=== PATIENT | female | born 1950 | race Caucasian/White ===

== ENCOUNTER 2019-05-02 08:01 | Outpatient (CLI) | payer MEDICARE, SELFPAY ==
--- NOTE | ~2019-05-02 | CT_ITS ---
EXAMINATION: CT chest wo con DATE: 05/02/2019 08:39 INDICATION: Solitary pulmonary nodule TECHNIQUE: Computed tomography (CT) of the chest was performed without intravenous contrast. The dose -length product (DLP) was 237.26 mGy-cm. Automated exposure control and iterative reconstruction tech [employer] were employed. COMPARISON: 04/12/2017 FINDINGS: There is a stable 6 mm nodule of the left lower lobe. No new or suspicious pulmonary nodule is identified. There is a small area of mild bronchiectasis and airspace opacity in the medial right lower lobe. No pleural effusion or pneumothorax is identified. No pathologically enlarged thoracic l ymph nodes are identified. The heart size is normal. Calcified coronary artery atherosclerosis is not ed. There is moderate thoracic spondylosis. Cholelithiasis is noted. IMPRESSION: 1. Stable left lower lobe nodule, consistent with old granulomatous disease. 2. Small area of mild bronchiectasis and airspace opacity in the medial right lower lobe, likely infe ctious or inflammatory. Reviewed, dictated and finalized at location A. RICAL CONTROL NESTING OPERATOR IMPRESSION: 1. Stable left lower lobe nodule, consistent with old granulomatous disease. 2. Small area of mild bronchiectasis and airspace opacity in the medial right l ower lobe, likely infectious or inflammatory.
== END 2019-05-02 08:02 | disposition home or self-care (01) ==
PROVIDERS: PCP Internal Medicine; Visit Provider Nurse Practitioner
DX: R91.1 Solitary pulmonary nodule (principal); J47.9 Bronchiectasis, uncomplicated
CPT/HCPCS: 71250

== ENCOUNTER 2019-05-20 08:41 | Outpatient (CLI) | payer MEDICARE, SELFPAY ==
--- NOTE | 2019-05-20 | EST_ITS ---
Patient Info Name: Virginia Smith Age: 69 years : 1950 Gender: Female Ht: 66 in Wt: 271 lbs BSA: 2.46 m2 Technical Quality: Good Exam Date: 05/20/2019 10:08 AM Exam Location: [facility] Pulmonary Patient Status: Outpatient Admit Date: 05/20/2019 Staff Ordering Physician: Dinah Read MANAGER SYSTEM-[place] Diabetic Educator: Gray Ruiz RDCS, RT Attending Provider: AMADOU BOBBY Referring Physician: Roro BERNARDO; Exercise Technologist: Gray Ruiz RDCS, RT Exercise Physician: Amadou Bobby DO Exam Type: CA stress echo Study Info Indications R06.00 - Dyspnea, unspecified Treadmill exercise stress echocardiogram is performed. Summary 1. 1. Inconclusive Wilner exercise stress test for ischemic ST changes by ECG criteria, achieving only 78% MPHR for age group which reduces sensitivity of the test. 2. 2. Reduced functional capacity, achieving 7 METs of workload. 3. 3. Hypertensive response to exercise. 4. 4. Appropriate HR recovery at 1 minute post exercise. 5. 5. Negative stress echocardiogram for ischemia by wall motion analysis at the level of HR achieved. 6. 6. Patient informed of the above results. Stress Echo Findings Left Ventricle Appropriate increase in LV endocardial thickening with systole. Appropriate augmentation of contractility with systole. No wall motion abnormality. Left Ventricle Normal LV systolic function, no wall motion abnormality. Protocol: Wilner Stress ECG Details Stage: REST Duration (min): 1 min : 45 sec Speed (mph): 0.0 Grade (%): 0 HR (bpm): 62 SBP (mmHg): 122 DBP (mmHg): 61 METS: --- Stage: REST Duration (min): 11 min : 44 sec Speed (mph): 0.0 Grade (%): 0 HR (bpm): 69 SBP (mmHg): 122 DBP (mmHg): 61 METS: --- Stage: STAGE 1 Duration (min): 1 min : 0 sec Speed (mph): 1.7 Grade (%): 10 HR (bpm): 84 SBP (mmHg): 122 DBP (mmHg): 61 METS: --- Stage: STAGE 1 Duration (min): 2 min : 0 sec Speed (mph): 1.7 Grade (%): 10 HR (bpm): 94 SBP (mmHg): 122 DBP (mmHg): 61 METS: --- Stage: STAGE 1 Duration (min): 3 min : 0 sec Speed (mph): 1.7 Grade (%): 10 HR (bpm): 99 SBP (mmHg): 143 DBP (mmHg): 53 METS: --- Stage: STAGE 2 Duration (min): 1 min : 0 sec Speed (mph): 2.5 Grade (%): 12 HR (bpm): 99 SBP (mmHg): 143 DBP (mmHg): 53 METS: --- Stage: STAGE 2 Duration (min): 2 min : 0 sec Speed (mph): 2.5 Grade (%): 12 HR (bpm): 108 SBP (mmHg): 206 DBP (mmHg): 64 METS: --- Stage: STAGE 2 Duration (min): 2 min : 47 sec Speed (mph): 0.0 Grade (%): 0 HR (bpm): 89 SBP (mmHg): 206 DBP (mmHg): 64 METS: --- Stage: RECOVERY Duration (min): 0 min : 12 sec Speed (mph): 0.0 Grade (%): 0 HR (bpm): 89 SBP (mmHg): 206 DBP (mmHg): 64 METS: --- Stage: RECOVERY Duration (min): 1 min : 12 sec Speed (mph): 0.0 Grade (%): 0 HR (bpm): 88 SBP (mmHg): 206 DBP (mmHg): 64 METS: ---
--- NOTE | ~2019-05-20 | DEXA_ITS ---
Bone Density Report Name: Virginia Smith Age: 69 Sex: Female Ethnicity: White Date of : 1950 Indication: postmenopausal; height loss; Referring Provider: Dinah Read Study: Bone densitometry was performed. Exam Date: May 20, 2019 Accession number: [id number] Bone Density: Region BMD T-score Z-score Classification AP Spine (L1-L4) 1.120 0.7 2.8 Normal Femoral Neck (Left) 0.934 0.8 2.6 Normal Total Hip (Left) 1.196 2.1 3.6 Normal Total Hip Bilateral Avg 1.151 1.7 3.3 Normal Femoral Neck (Right) 0.947 0.9 2.7 Normal Total Hip (Right) 1.104 1.3 2.9 Normal World Health Organization criteria for BMD impression classify patients as: Normal (T-score at or above -1.0), Osteopenia (T-score between -1.0 and -2.5), or Osteoporosis (T-score at or below -2.5). 10-year Fracture Risk: FRAX not reported because: All T-scores for Spine Total, Hip Total, Femoral Neck at or above -1.0 Previous Exams: Region Exam Age BMD T-score BMD Change BMD Change Date g/cm2 vs Baseline vs Previous AP Spine(L1-L4) 05/20/2019 69 1.120 0.7 -0.143(-11.3%) -0.143(-11.3%) 05/07/2003 53 1.264 2.0 Total Hip(Left) 05/20/2019 69 1.196 2.1 0.061(5.4%)# 0.061(5.4%)# 05/07/2003 53 1.135 1.6 Total Hip(Right) 05/20/2019 69 1.104 1.3 -0.058(-5.0%)# -0.058(-5.0%)# 05/07/2003 53 1.162 1.8 *Denotes significance at 95% confidence level, LSC for AP Spine = 0.022 g/cm2, LSC for Total Hip = 0.027 g/cm2 Clinical Information Provided by Patient: Patient maximum height was 67 Menopause Age: 58 No regular weight bearing exercise Drinks caffeinated beverages Onset of menses at age 13 Number of children 4 Impression: The patient has normal bone mass. No significant bone loss was observed. Discussion: LOW RISK OF FRACTURE; BONE DENSITY IS WELL ABOVE THE MINIMUM DESIRABLE LEVEL AND ABOVE AVERAGE FOR AGE AND SEX AT ALL SKELETAL SITES TESTED. This person's bone density is above expected limits for age and sex. This is rarely clinically significant, but should be pursued if there are significant musculoskeletal complaints. The patient should follow a healthful lifestyle (good nutrition with adequate calcium and vitamin D, and appropriate weight-bearing exercise). Follow-Up: Consider repeating this study in 5 years or sooner if there is some new clinical indication. Reported by: SHANTI 05/20/2019 9:08:00 AM.
== END 2019-05-20 08:42 | disposition home or self-care (01) ==
PROVIDERS: PCP Internal Medicine; Visit Provider Nurse Practitioner
DX: Z78.0 Asymptomatic menopausal state (principal); R06.09 Other forms of dyspnea
CPT/HCPCS: 77080; 93351

== ENCOUNTER 2020-05-27 06:36 | Outpatient (CLI) | payer MEDICARE, SELFPAY ==
--- NOTE | 2020-05-27 07:00 | ECHO_ITS ---
Patient Info Name: Virginia Smith Age: 70 years : 1950 Gender: Female Ht: 66 in Wt: 270 lbs BSA: 2.45 m2 HR: 41 bpm BP: 124 / 72 mmHg Heart Rhythm: Bradycardia Exam Date: 05/27/2020 7:25 AM Exam Location: [facility] Pulmonary Patient Status: Outpatient Admit Date: 05/27/2020 Staff Ordering Physician: Amadou Wylie DO Rotary Drier: Shellie Chamorro RDCS Attending Provider: Amadou Wylie DO Exam Type: CA echo doppler color flow Study Info Indications R06.00 - Dyspnea, unspecified Complete two-dimensional, color flow and Doppler transthoracic echocardiogram is performed. Summary 1. Complete two-dimensional, color flow and Doppler transthoracic echocardiogram is performed. 2. Left ventricular chamber dimension is normal. 3. Left ventricular systolic function is normal, estimated at 60-65%. 4. The left ventricular diastolic function is abnormal. 5. E/e' 19 is elevated. 6. Left atrial chamber dimension is moderately enlarged. 7. There is mild aortic valve sclerosis. 8. The mitral valve has moderately calcified annulus. 9. There is mild mitral valve regurgitation. 10. There is mild tricuspid valve regurgitation. 11. Mild pulmonary hypertension, estimated pulmonary arterial systolic pressure is 44 mmHg. 12. There is trace pulmonic regurgitation. Left Ventricle E/e' 19 is elevated. Left ventricular chamber dimension is normal. Left ventricular systolic function is normal, estimated at 60-65%. The left ventricular diastolic function is abnormal. Right Ventricle Right ventricular chamber dimension is normal. Right ventricular systolic function is normal. Left Atria Left atrial chamber dimension is moderately enlarged. Right Atria Right atrial chamber dimension is normal. Aortic Valve The aortic valve is trileaflet. There is mild aortic valve sclerosis. There is no aortic valve stenosis. There is no aortic valve regurgitation. Pulmonic Valve There is trace pulmonic regurgitation. Mitral Valve The mitral valve has moderately calcified annulus. There is no mitral valve stenosis. There is mild mitral valve regurgitation. Tricuspid Valve There is mild tricuspid valve regurgitation. Mild pulmonary hypertension, estimated pulmonary arterial systolic pressure is 44 mmHg. Pericardium/Pleural There is no pericardial effusion. Inferior Vena Cava Normal inferior vena cava with >50% collapse upon inspiration consistent with normal right atrial pressure, 5 mmHg. Aorta The aortic root size at the sinus of Valsalva is normal. Left Ventricular Outflow Tract Name Value Normal LVOT 2D LVOT Diameter 2.0 cm LVOT Doppler LVOT Peak Velocity 117 cm/s LVOT Peak Gradient 4 mmHg LVOT Mean Gradient 2 mmHg LVOT VTI 27 cm LVOT VTI/AV VTI Ratio 0.6 LVOT Stroke Volume 88 ml LVOT CO 13.8 l/min LVOT CI 5.6 l/min/m2 Pulmonic Valve
== END 2020-05-27 06:37 | disposition home or self-care (01) ==
PROVIDERS: PCP Internal Medicine; Visit Provider Internal Medicine Cardiovascular Disease
DX: R06.00 Dyspnea, unspecified (principal); I27.20 Pulmonary hypertension, unspecified; I08.3 Combined rheumatic disorders of mitral, aortic and tricuspid valves
CPT/HCPCS: 93306

== ENCOUNTER 2020-07-15 08:25 | Outpatient (CLI) | payer MEDICARE, SELFPAY ==
--- NOTE | ~2020-07-15 | MM_ITS ---
EXAMINATION: MM screening julian BI w araceli HISTORY: Screening mammogram TECHNIQUE: Craniocaudal and mediolateral oblique 3-D tomosynthesis images were obtained and synthetic 2-D images were generated. CAD analysis was submitted and interpreted. COMPARISON: 10/31/2018, 10/11/2017, 05/25/2016 bilateral digital screening mammogram examinations BREAST PARENCHYMAL COMPOSITION: The breasts are almost entirely fatty. FINDINGS: There is no evidence of suspicious mass, calcification, or architectural distortion to sugg est malignancy in either breast. There has been no suspicious interval change. IMPRESSION: 1. No mammographic evidence of malignancy. 2. Recommend routine screening mammography in one year. BI-RADS Category 1: Negative Reviewed, dictated and finalized at location A.
== END 2020-07-15 08:26 | disposition home or self-care (01) ==
LOC: ANHIMG 08:27
PROVIDERS: PCP Internal Medicine; Visit Provider Obstetrics & Gynecology
DX: Z12.31 Encounter for screening mammogram for malignant neoplasm of breast (principal)
CPT/HCPCS: 77063; 77067

== ENCOUNTER 2021-05-01 07:41 | Outpatient (CLI) | payer MEDICARE, SELFPAY ==
--- NOTE | 2021-05-02 16:09 | WPDHOMESLEEP ---
Sleep Study - Home Unattended Date of Study: 05/01/21 <Nya Young DO - Last Filed: 05/02/21 16:32> Ordering Provider: Amadou Wylie DO <Nya Young DO - Last Filed: 05/02/21 16:32> Interpreting Provider: Nya Young DO <Nya Young DO - Last Filed: 05/02/21 16:32> Home Sleep Study Type: Apnea Link Air <yNa Young DO - Last Filed: 05/02/21 16:32> Height: 1.68 m <Nya Young DO - Last Filed: 05/02/21 16:32> Weight: 122.47 kg <Nya Young DO - Last Filed: 05/02/21 16:32> Body Mass Index: 43.5 <Nya Yougn DO - Last Filed: 05/02/21 16:32> Neck Circumference (inches): 18 <Nya Young DO - Last Filed: 05/02/21 16:32> [place]: 3 <Nya Young DO - Last Filed: 05/02/21 16:32> Reason for Sleep Study Unrefreshing sleep and daytime hypersomnia. <Nya Young DO - Last Filed: 05/02/21 16:32> Sleep History The patient is a 71 y/o female with COPD, hypertension, hyperlipidemia, hypothyroidism, CAD and bradycardia that had a HSAT ordered by her lobby concierge for evaluation of ALIYAH.The patient rarely awakens from sleep short of breath. She occasionally awakens at night with heartburn, belching or cough. She rarely snores loud enough that others complain. She occasionally has trouble sleeping when she has a cold. She denies waking up gasping for air throughout the night. She denies having breathing problems at night observed by others. She rarely sweats excessively at night. She rarely notices heart palpitations or irregular heartbeats during the night. She rarely falls asleep during the day and never while driving. She rarely experiences loss of muscle tone when extremely emotional. She denies sleep paralysis. She denies having trouble at school or work due to sleepiness. She occasionally experiences vivid dreamlike scenes upon awakening or falling asleep. She rarely has nightmares. She frequently has thoughts racing through her mind. She rarely feels sad or depressed. She occasionally has anxiety. She rarely notices parts of her body jerk. She denies kicking during the night. She occasionally has crawling and aching feelings in her legs and rarely has leg pain during the night. She occasionally grinds her teeth during sleep but denies awakening with morning jaw pain. She denies being bothered by pain during the day and being awakened by pain during the night. She rarely wakes up feeling stiff in the morning with sore or achy muscles. She rarely wakes up with pain in the neck, spine or other joints. She goes to bed between 11:00 p.m. and 1:00 a.m. on both weekdays and weekends. She can usually fall asleep within 10 minutes. She wakes up once or twice throughout the night to urinate. it can take her up to 2 hours to fall back asleep. She wakes up between 6 and 7:00 a.m. on both weekdays and weekends. She typically gets between 6 and 8 hours of sleep per night. She will stay in bed for 15-30 minutes after waking up in the morning. She currently lives with her and son. She denies consuming any caffeinated beverages within 2 hours of bedtime. She does not engage in physical exercise before bedtime. She will read watch television before falling asleep. She denies taking naps in the afternoon or the evening. She will drink 2-3 cups of a caffeinated beverage in the morning daily. She denies tobacco, alcohol recreational drug use. <Nya Young DO - Last Filed: 05/02/21 16:32> [facility] Past Medical History Medical History: Medical History COPD (chronic obstructive pulmonary disease) Hypercholesteremia Hypertension Hypothyroidism Vaginal delivery x4 <Nya Young DO - Last Filed: 05/02/21 16:32> Family History Family History: Family History (Reviewed 05/02/21 @ 16:22 by Nya Amor
[2021-05-02 16:32] VITALS: BMI 43.5
== END 2021-05-02 13:46 | disposition home or self-care (01) ==
LOC: ANHCSM 07:42
PROVIDERS: PCP Internal Medicine; Visit Provider Internal Medicine Cardiovascular Disease
DX: G47.10 Hypersomnia, unspecified (principal); G47.33 Obstructive sleep apnea (adult) (pediatric); G47.31 Primary central sleep apnea
CPT/HCPCS: 95806

== ENCOUNTER 2021-05-09 07:36 | Outpatient (CLI) | payer MEDICARE, SELFPAY ==
--- NOTE | 2021-05-10 15:23 | WPDSLEEPSTUD ---
Sleep Study Date of Study: 05/09/21 Ordering Provider: Amadou Wylie DO Interpreting Physician: Nicki Alfaro MD Sleep Study Type: CPAP Titration Height: 1.68 m Weight: 122.47 kg Body Mass Index: 43.5 Neck Circumference (inches): 16.5 [place]: 3 Reason for Sleep Study * Home sleep test 05/01/2021 with moderate mixed sleep apnea, apnea hypopnea index 21, central apnea hypopnea index 7.3; she presents for a CPAP titration; AHI was 21 and central AHI was 7.3 with Abisai-Storm respirations noted. Sleep History Virginia Smith is a 71 year-old female who had a home sleep test May 01, 2021 showing moderate mixed sleep apnea, and she returns for a CPAP titration. Her medical history includes COPD, hypertension, hyperlipidemia, hypothyroidism, CAD and bradycardia. The patient rarely awakens from sleep short of breath. She occasionally awakens at night with heartburn, belching or cough. She rarely snores loud enough that others complain. She occasionally has trouble sleeping when she has a cold. She denies waking up gasping for air throughout the night. She denies having breathing problems at night observed by others. She rarely sweats excessively at night. She rarely notices heart palpitations or irregular heartbeats during the night. She rarely falls asleep during the day and never while driving. She rarely experiences loss of muscle tone when extremely emotional. She denies sleep paralysis. She denies having trouble at school or work due to sleepiness. She occasionally experiences vivid dreamlike scenes upon awakening or falling asleep. She rarely has nightmares. She frequently has thoughts racing through her mind. She rarely feels sad or depressed. She occasionally has anxiety. She rarely notices parts of her body jerk. She denies kicking during the night. She occasionally has crawling and aching feelings in her legs and rarely has leg pain during the night. She occasionally grinds her teeth during sleep but denies awakening with morning jaw pain. She denies being bothered by pain during the day and being awakened by pain during the night. She rarely wakes up feeling stiff in the morning with sore or achy muscles. She rarely wakes up with pain in the neck, spine or other joints. Normal bedtime is between 11:00 p.m. and 1:00 a.m., usually falling asleep within 10 minutes. She wakes up once or twice throughout the night to urinate. It may take up to 2 hours to fall asleep once she wakes during the night. She wakes up between 6:00 a.m. and 7:00 a.m.. She typically gets between 6 and 8 hours of sleep per night. She denies taking naps in the afternoon or the evening. Habits: No tobacco. Caffeine: 2-3 cups of a caffeinated beverage in the morning daily. No alcohol or recreational drug use. [facility] Past Medical History Medical History COPD (chronic obstructive pulmonary disease) Hypercholesteremia Hypertension Hypothyroidism Vaginal delivery x4 Family History Family History Father Family history of alcoholism Hypertension Hypercholesteremia Mother Cerebrovascular accident, Onset Age: 74 Family history of Alzheimer's disease Acute myocardial infarction Carcinoma of colon Hypertension Hypercholesteremia Sibling Carcinoma of colon brother Hypercholesteremia brother and sister Ovarian cancer Family history of Alzheimer's disease Family history of coronary artery disease Family history of cardiovascular disease, Onset Age: 66 Family history of lung cancer Family history of malignant neoplasm of breast in first degree relative Breast cancer Acute myocardial infarction brother Hypertension brother and sister Grandparent Hypertension grandfathers and grandmothers Other Family history of elevated blood lipids Family history of primary malignant neoplasm of live
[2021-05-19 18:26] VITALS: BMI 43.5
== END 2021-05-10 06:10 | disposition home or self-care (01) ==
LOC: ANHCSM 07:37
PROVIDERS: PCP Internal Medicine; Visit Provider Internal Medicine Cardiovascular Disease
DX: G47.33 Obstructive sleep apnea (adult) (pediatric) (principal); G47.31 Primary central sleep apnea
CPT/HCPCS: 95811

== ENCOUNTER 2021-10-09 09:24 | Outpatient (CLI) | payer MEDICARE, SELFPAY ==
--- NOTE | ~2021-10-09 | MM_ITS ---
EXAMINATION: MM screening julian BI w araceli HISTORY: Screening mammogram TECHNIQUE: Craniocaudal and mediolateral oblique 3-D tomosynthesis images were obtained and synthetic 2-D images were generated. CAD analysis was submitted and interpreted. COMPARISON: 07/15/2020, 10/31/2018, 10/11/2017 bilateral screening mammogram examinations BREAST PARENCHYMAL COMPOSITION: There are scattered areas of fibroglandular density. FINDINGS: There is no evidence of suspicious mass, calcification, or architectural distortion to sugg est malignancy in either breast. There has been no suspicious interval change. IMPRESSION: 1. No mammographic evidence of malignancy. 2. Recommend routine screening mammography in one year. BI-RADS Category 1: Negative Reviewed, dictated and finalized at location A.
== END 2021-10-09 09:25 | disposition home or self-care (01) ==
LOC: ANHIMG 09:26
PROVIDERS: PCP Internal Medicine; Visit Provider Nurse Practitioner
DX: Z12.31 Encounter for screening mammogram for malignant neoplasm of breast (principal)
CPT/HCPCS: 77063; 77067

== ENCOUNTER 2023-02-21 07:21 | Outpatient (CLI) | payer MEDICARE, SELFPAY ==
--- NOTE | ~2023-02-21 | MM_ITS ---
EXAMINATION: MM screening julian BI w araceli HISTORY: Screening mammogram, family history of breast cancer in her sister. TECHNIQUE: Craniocaudal and mediolateral oblique 3-D tomosynthesis images were obtained and synthetic 2-D images were generated. CAD analysis was submitted and interpreted. COMPARISON: 10/06/2021, 07/15/2020, 10/31/2018, 10/11/2017 BREAST PARENCHYMAL COMPOSITION: There are scattered areas of fibroglandular density. FINDINGS: No suspicious mass, calcification, or architectural distortion are identified in either [place] ast to suggest malignancy. There has been no suspicious interval change. IMPRESSION: 1. No mammographic evidence of malignancy. 2. Recommend routine screening mammography in one year. BI-RADS Category 1: Negative Reviewed, dictated and finalized at location A. ERY KILN BUILDER
== END 2023-02-21 07:22 | disposition home or self-care (01) ==
LOC: ANHIMG 07:24
PROVIDERS: PCP Family Medicine; Visit Provider Family Medicine
DX: Z12.31 Encounter for screening mammogram for malignant neoplasm of breast (principal)
CPT/HCPCS: 77063; 77067

== ENCOUNTER 2023-04-03 08:43 | Outpatient (CLI) | payer MEDICARE, SELFPAY ==
--- NOTE | ~2023-04-03 | DEXA_ITS ---
Bone Density Report Name: AYESHA REED Age: 73 Sex: Female Ethnicity: White Date of : 1950 Indication: postmenopausal; screening for osteoporosis; height loss; Referring Provider: GILLIAN SANTILLAN Study: Bone densitometry was performed. Exam Date: April 03, 2023 Accession number: [id number] Bone Density: Region BMD T-score Z-score Classification AP Spine(L1, L2, L3) 1.179 1.5 3.8 Normal Femoral Neck (Left) 0.888 0.4 2.4 Normal Total Hip (Left) 1.139 1.6 3.4 Normal Femoral Neck (Right) 0.886 0.3 2.4 Normal Total Hip (Right) 1.085 1.2 3.0 Normal Total Hip Mean 1.112 1.4 3.2 Normal World Health Organization criteria for BMD impression classify patients as: Normal (T-score at or above -1.0), Osteopenia (T-score between -1.0 and -2.5), or Osteoporosis (T-score at or below -2.5). 10-year Fracture Risk: FRAX not reported because: All T-scores for Spine Total, Hip Total, Femoral Neck at or above -1.0 Previous Exams: Region Exam Age BMD T-score BMD Change BMD Change Date g/cm2 vs Baseline vs Previous AP Spine (L1-L3) 04/03/2023 73 1.179 1.5 0.079 (7.2%)* 0.079 (7.2%)* 05/20/2019 69 1.100 0.7 Total Hip(Left) 04/03/2023 73 1.139 1.6 -0.057 (-4.8%) -0.057 (-4.8%) 05/20/2019 69 1.196 2.1 Total Hip(Right) 04/03/2023 73 1.085 1.2 -0.019 (-1.7%) -0.019 (-1.7%) 05/20/2019 69 1.104 1.3 *Denotes significance at 95% confidence level, LSC for AP Spine = 0.022 g/cm2, LSC for Total Hip = 0.027 g/cm2 Clinical Information Provided by Patient: Has used the following medications: Vitamin D Patient maximum height was 67 Menopause Age: 58 No regular weight bearing exercise Drinks caffeinated beverages Onset of menses at age 13 Number of children 4 Impression: The patient has normal bone mass. The BMD for the Total Hip(Left) decreased, changing by -4.8% since the last DXA exam. Discussion: LOW RISK OF FRACTURE; BONE DENSITY IS WELL ABOVE THE MINIMUM DESIRABLE LEVEL AND ABOVE AVERAGE FOR AGE AND SEX AT ALL SKELETAL SITES TESTED. This person's bone density is above expected limits for age and sex. This is rarely clinically significant, but should be pursued if there are significant musculoskeletal complaints. The patient should follow a healthful lifestyle (good nutrition with adequate calcium and vitamin D, and appropriate weight-bearing exercise). Follow-Up: Consider repeating this study in 3 to 4 years
== END 2023-04-03 08:44 | disposition home or self-care (01) ==
LOC: ANHIMG 08:49
PROVIDERS: PCP Family Medicine; Visit Provider Family Medicine
DX: Z13.820 Encounter for screening for osteoporosis (principal); Z78.0 Asymptomatic menopausal state
CPT/HCPCS: 77080

== ENCOUNTER 2023-10-28 03:03 | Inpatient (IN) | payer MEDICARE, SELFPAY ==
[2023-10-28] VITALS (37 sets, daily range): BP systolic 103–136; BP diastolic 52–82; PULSE 66–92; RESP 14–28; TEMP 36.3–37.2; O2SAT 93–100; BMI 41.6
--- NOTE | ~2023-10-28 | XR_ITS ---
EXAMINATION: XR chest 1V portable DATE: 10/28/2023 03:50 INDICATION: Chest pain. TECHNIQUE: A single frontal view of the chest was obtained. COMPARISON: None. FINDINGS: There is mild atelectasis in the lower lung zones. No pleural effusion or pneumothorax. The heart size is normal. IMPRESSION: 1. Mild atelectasis in the lower lung zones. Reviewed, dictated and finalized at location A.
--- NOTE | ~2023-10-28 | CT_ITS ---
EXAMINATION: CT abdomen pelvis w con DATE: 10/28/2023 12:12 INDICATION: Abdominal lymphadenopathy. TECHNIQUE: Computed tomography (CT) of the abdomen and pelvis was performed with 100 mL Omnipaque 350 intravenous contrast. Automated exposure control and iterative reconstruction technique were employe d. The dose-length product was 1464.48 mGy-cm. COMPARISON: CT abdomen and pelvis 03/30/13 FINDINGS: The visualized portions of the lung bases demonstrate mild atelectasis. No pleural effusion . The heart size is normal. There are coronary artery calcifications. No pericardial effusion. The li vincent is normal. There are gallstones in the gallbladder, which is normal in size. There is mild spleno megaly. The pancreas and right adrenal gland are normal. There are cysts in the kidneys measuring up to 1.9 cm on the right. There are masses in the perinephric spaces including around the hilum of left kidney and involving left adrenal gland. There is aortocaval and left para-aortic lymphadenopathy. F or example, a left para-aortic jillian mass measures 6.2 x 3.6 cm. There is diverticulosis of the colon without evidence of diverticulitis. There are no dilated loops of bowel. The appendix is normal. Aor tic atherosclerosis is noted. There is no free intraperitoneal fluid. There is moderate thoracic spon dylosis and lumbar spondylosis. IMPRESSION: 1. Retroperitoneal lymphadenopathy and perinephric masses, consistent with lymphoma. CT-guided biopsy is recommended. Reviewed, dictated and finalized at location A. IMPRESSION: 1. Retroperitoneal lymphadenopathy and perinephric masses, consistent with lymp aly. CT-guided biopsy is recommended.
--- NOTE | ~2023-10-28 | CT_ITS ---
EXAMINATION: CT biopsy abdomen percutaneous DATE: 10/29/2023 11:54 INDICATION: Right perinephric mass. TECHNIQUE: The procedure including the risks, benefits, and alternatives was discussed with the patie nt. Risks discussed included bleeding and infection. The patient verbalized understanding of the risk s and agreed to proceed. The skin overlying the right kidney was prepped and draped in usual sterile fashion. Anesthetic was administered with 1% lidocaine subcutaneously. A 16 gauge outer needle was advanced under CT guidance into the right perinephric mass. An 18 gauge core biopsy needle was then used to obtain multiple core biopsy specimens. The mA was adjusted according to patient size. Iterati ve reconstruction technique was employed. The dose-length product was 163.73 mGy-cm. The needle was r emoved and the entry site was cleaned and dressed. There were no immediate complications. FINDINGS: CT images demonstrate the outer needle tip adjacent to a 2.8 cm right perinephric mass. IMPRESSION: 1. CT-guided core needle biopsy of a right perinephric mass. Reviewed, dictated and finalized at location A.
--- NOTE | ~2023-10-28 | CT_ITS ---
EXAMINATION: CTA chest PE protocol DATE: 10/28/2023 06:58 INDICATION: Chest pain. TECHNIQUE: Computed tomography angiography (CTA) of the chest was performed with 100 mL Omnipaque-350 intravenous contrast timed to evaluate the pulmonary arteries. Coronal maximum intensity projection 3D-reconstructions were created by the technologist. Automated exposure control and iterative reconst ruction technique were employed. The dose-length product was 865.25 mGy-cm. COMPARISON: Chest CT 05/02/2019 FINDINGS: The lungs demonstrate mild atelectasis. No pleural effusion. Cardiomegaly is noted. There a re coronary artery calcifications. No pericardial effusion. There is a small sliding hiatal hernia. T here are gallstones in the gallbladder, which is normal in size. There is no pulmonary embolus. Parti ally visualized is aortocaval and left para-aortic lymphadenopathy. Perinephric masses are noted. The re are cysts in right kidney measuring up to 19 mm. There is moderate thoracic spondylosis. IMPRESSION: 1. Partially visualized retroperitoneal lymphadenopathy and perinephric masses suspicious for maligna ncy such as lymphoma. CT abdomen and pelvis with contrast is recommended. 2. No pulmonary embolus. Reviewed, dictated and finalized at location A. IMPRESSION: 1. Partially visualized retroperitoneal lymphadenopathy and perinephric masses suspicious for malignancy such as lymphoma. CT abdomen and pelvis with contrast is recommended. 2. No pulmonary embolus.
--- NOTE | 2023-10-28 03:09 | ECG_ITS ---
Test Date: 2023-10-28 03:11:14 Measurements Intervals [place] Rate: 74 P: 0 AL: 0 QRS: -15 QRSD: 96 T: -3 QT: 355 QTc: 395 Interpretive Statements ATRIAL FIBRILLATION WITH CONTROLLED VENTRICULAR RESPONSE LOW QRS VOLTAGE LEFTWARD AXIS ABNORMAL ECG No previous ECG available for comparison Electronically Signed On 10-28-2023 12:30:03 CDT by Dewayne Lazaro M.D.
[2023-10-28 03:20] LABS: Hematocrit 30.9 % (37.0-47.0); Hemoglobin 9.7 g/dL (12.0-15.0); Mean Corpuscular HGB Conc 31.4 g/dl (32-36); Mean Corpuscular Hemoglobin 29.6 pg (26-34); Mean Corpuscular Volume 94.2 fl (80-100); Mean Platelet Volume 10.3 fl (7.4-10.4); Platelet Count Result 180 k/mm3 (150-375); Red Blood Count 3.28 M/mm3 (4.2-5.4); Red Cell Distribution Width 17.3 % (11.5-14.5); White Blood Count 7.4 K/mm3 (4.5-10.0)
[2023-10-28 03:32] LABS: INR 1.3; Prothrombin Time 16.7 Seconds (11.1-14.7)
[2023-10-28 03:33] LABS: Partial Thromboplastin Time 32.1 Seconds (22.3-36.8)
[2023-10-28 03:49] LABS: Alanine Aminotransferase 22 U/L (6-35); Albumin Level 3.3 g/dL (3.5-5.1); Alkaline Phosphatase 70 U/L (38-126); Anion Gap 7 mmol/L (4-12); Aspartate Amino Transferase 103 U/L (14-36); Bilirubin,Total 1.4 mg/dL (0.2-1.3); Blood Urea Nitrogen 17 mg/dL (7-17); Calcium 8.8 mg/dL (8.4-10.2); Carbon Dioxide 28 mmol/L (22-30); Chloride 99 mmol/L (98-107); Estimated CRCL calculation 54 ml/min; Estimated Glomerular Filt Rate 54; Glucose 113 mg/dL (65-110); Lipase 105 U/L (23-300); Potassium 4.4 mmol/L (3.4-5.0); Sodium 134 mmol/L (137-145)
[2023-10-28 03:52] LABS: Atypical Lymphocytes Present; Band Neutrophils Percent 5 % (0-6); Lymphocytes Absolute Manual 1.55 K/mm3 (1.1-4.5); Monocytes Absolute Manual 0.81 K/mm3 (0.1-0.90); Monocytes Percent Manual 11 % (3-9); Neutrophils Absolute Manual 5.03 K/mm3 (1.7-7.2); Neutrophils Percent Manual 63 % (46-73); Platelet Estimate Adequate (Adequate); Schistocytes None Seen; Total Cells Counted 100
[2023-10-28 03:53] LABS: Anisocytosis 1+; Large Platelets Present; Stomatocytes 1+
[2023-10-28 04:07] LABS: Troponin I < 0.012 ng/mL (0.000-0.034)
[2023-10-28 04:39] LABS: Influenza A QL RT-PCR Negative (Negative); Influenza B QL RT-PCR Negative (Negative); RSV RNA, RT-PCR Negative (Negative); SARS-CoV-2 RNA PCR Negative (Negative)
--- NOTE | 2023-10-28 05:34 | ED.CHESTPAIN ---
HPI - Chest Pain General Chief Complaint: Chest Pain <Varsha Cottrell MD - Last Filed: 10/28/23 06:52> Stated Complaint: chest pain <Varsha Cottrell MD - Last Filed: 10/28/23 06:52> Time Seen by Provider: 10/28/23 03:06 <Varsha Cottrell MD - Last Filed: 10/28/23 06:52> History of Present Illness HPI narrative: Patient presenting with chest pain has been intermittent over the last few days, she has also noticed some back pain for the last 2 weeks that is intermittent and worse in certain positions. She also occasionally has some nausea and vomiting. Has a slight cough. Denies any symptoms currently. Has also been feeling fatigued. <Varsha Cottrell MD - Last Filed: 10/28/23 06:52> Related Data Home Medications: Home Medications Medication Instructions Recorded Confirmed ascorbic acid (vitamin C) 500 mg 500 mg PO DAILY 03/25/20 10/28/23 chewable tablet cinnamon bark 500 mg capsule 1,000 mg PO DAILY 03/25/20 10/28/23 (Cinnamon) coenzyme Q10 100 mg capsule 100 mg PO DAILY 03/25/20 10/28/23 omega-3 fatty acids 1,000 mg 1,000 mg PO DAILY 03/25/20 10/28/23 capsule (Fish Oil Concentrate) aspirin 81 mg tablet,delayed 81 mg PO DAILY 06/22/20 10/28/23 release (Adult Low Dose Aspirin) multivitamin with iron (Daily 1 tablet PO DAILY 08/15/23 10/28/23 Vitamin with Iron tablet) umeclidinium 62.5 mcg-vilanterol See Rx Instructions .Route .COMPLEX 10/28/23 10/28/23 25 mcg/actuation powdr for inhalation (Anoro Ellipta) <Varsha Cottrell MD - Last Filed: 10/28/23 06:52> Allergies/Adverse Reactions: Allergies Allergy/AdvReac Type Severity Reaction Status Date / Time levothyroxine sodium Allergy Intermediate Swelling Verified 10/28/23 10:35 <Varsha Cottrell MD - Last Filed: 10/28/23 06:52> Review of Systems Review of Systems: All systems reviewed & are unremarkable except as noted in HPI and below <Varsha Cottrell MD - Last Filed: 10/28/23 06:52> PMFSH Past Medical History Medical History: Medical History COPD (chronic obstructive pulmonary disease) Hypercholesteremia Hypertension Hypothyroidism Vaginal delivery x4 <Varsha Cottrell MD - Last Filed: 10/28/23 06:52> Family History Family History: Family History Father Hypercholesteremia Family history of alcoholism Hypertension Mother Acute myocardial infarction Hypercholesteremia Family history of Alzheimer's disease Carcinoma of colon Hypertension Cerebrovascular accident, Onset Age: 74 Sibling Family history of cardiovascular disease, Onset Age: 66 Ovarian cancer Acute myocardial infarction brother Hypercholesteremia brother and sister Family history of lung cancer Breast cancer Family history of Alzheimer's disease Family history of malignant neoplasm of breast in first degree relative Family history of coronary artery disease Carcinoma of colon brother Hypertension brother and sister Family history of elevated blood lipids Grandparent Hypertension grandfathers and grandmothers <Varsha Cottrell MD - Last Filed: 10/28/23 06:52> Social History Social History: Social History Smoking status: Never smoker Second hand tobacco smoke exposure: No Alcohol intake: never Alcohol use details: Social - at weddings Substance use: never Do You Feel Safe in your Home?: Yes Lack of Transportation: No Lack of Food: Never True Current Housing: I Have Housing Concerned About Future Housing: No Difficulty Paying Gas/Electric Bills: No Difficulty Paying for Meds: No Currently Unemployed: No Education: Bachelor's Degree Difficulty w/ Childcare or Family Care: No Spiritual care concerns: No <Varsha Cottrell MD - Last Filed: 10/28/23 06:52> Exam Narrative: EXAMINATION OF O
--- NOTE | 2023-10-28 06:28 | ECG_ITS ---
Test Date: 2023-10-28 06:33:38 Measurements Intervals May Rate: 85 P: 0 AL: 0 QRS: -21 QRSD: 91 T: -11 QT: 374 QTc: 446 Interpretive Statements ATRIAL FIBRILLATION LOW QRS VOLTAGE IN PRECORDIAL LEADS [QRS DEFLECTION < 1.0 mV IN CHEST LEADS] LEFTWARD AXIS ABNORMAL RHYTHM ECG Compared to ECG 10/28/2023 03:11:14 NO DIFFERENCE Electronically Signed On 10-28-2023 12:30:36 CDT by Dewayne Lazaro M.D.
[2023-10-28 07:04] LABS: Troponin I < 0.012 ng/mL (0.000-0.034)
--- NOTE | 2023-10-28 10:25 | ADMGEN ---
This patient, Virginia Smith, was admitted to 2 Medical Room 256-. Patient/family oriented to hospital policies and general routines including ID bracelet, bed and alarms, visiting hours, pain management, procedures, bathroom and other care routines, personal items, smoking policy, room service/diet, and visiting hours. Information on how to activate the Rapid Response Team has been discussed. Patient/Family are encouraged to report perceived risks to care and to ask questions if they do not understand what they are told or what they should do.
[2023-10-28 10:33] LABS: Magnesium 2.1 mg/dL (1.6-2.3)
--- NOTE | 2023-10-28 11:46 | PM.IMHP ---
H&P: HPI History of Present Illness Date/Time: 10/28/23 11:46 Chief Complaint: dyspnea on exertion, fatigue, new onset AFib, possible lymphoma Narrative: This is a 73-year-old female patient with a past history of hypertension hyperlipidemia hypothyroidism COPD presented to the emergency department 2 weeks vague symptoms including fatigue cough nausea occasional vomiting and intermittent back pain. Patient also states that she thinks she may have had a urinary tract infection due to frequent urination. patient reports feeling chilled and requiring multiple blankets but no known fever. Workup in the emergency department showed chest x-ray with some findings of atelectasis and labs with normal white blood cell count but noticeable drop in hemoglobin as well as findings to support MAYRA, mild hyponatremia. EKG showed atrial fibrillation which is a new finding for this patient. Given her age in past medical history she would be a candidate for anticoagulation. Decision was made to obtain CTA of the chest and yielded finding of retroperitoneal lymphadenopathy and perinephric mass on the left that was not fully visualized. radiology with recommendations for CT scan abdomen pelvis to assess for further findings concerning for lymphoma. Discussed case with radiologist electronic parts designer who felt that a 2nd IV contrast load today would not likely cause significant renal dysfunction and Dr. Reynoso he recommended proceeding with CT scan abdomen pelvis IV contrast today. After this scan was resulted he then recommended interventional radiology biopsy tomorrow. Discussed findings with patient and her family. They are agreeable to proceed with biopsy and oncology referral. Anticoagulation will be delayed until after biopsy. Review of Systems Review of Systems: All systems reviewed & are unremarkable except as noted in HPI and below PMFSH Past Medical History Medical History COPD (chronic obstructive pulmonary disease) Hypercholesteremia Hypertension Hypothyroidism Vaginal delivery x4 Family History Family History Father Hypercholesteremia Family history of alcoholism Hypertension Mother Acute myocardial infarction Hypercholesteremia Family history of Alzheimer's disease Carcinoma of colon Hypertension Cerebrovascular accident, Onset Age: 74 Sibling Family history of cardiovascular disease, Onset Age: 66 Ovarian cancer Acute myocardial infarction brother Hypercholesteremia brother and sister Family history of lung cancer Breast cancer Family history of Alzheimer's disease Family history of malignant neoplasm of breast in first degree relative Family history of coronary artery disease Carcinoma of colon brother Hypertension brother and sister Family history of elevated blood lipids Grandparent Hypertension grandfathers and grandmothers Social History Social History Smoking status: Never smoker Second hand tobacco smoke exposure: No Alcohol intake: never Alcohol use details: Social - at weddings Substance use: never Do You Feel Safe in your Home?: Yes Lack of Transportation: No Lack of Food: Never True Current Housing: I Have Housing Concerned About Future Housing: No Difficulty Paying Gas/Electric Bills: No Difficulty Paying for Meds: No Currently Unemployed: No Education: Bachelor's Degree Difficulty w/ Childcare or Family Care: No Spiritual care concerns: No Meds Home Medications and Allergies Home Medications Medication Instructions Recorded Confirmed Type ascorbic acid (vitamin C) 500 mg 500 mg PO DAILY 03/25/20 10/28/23 History chewable tablet cinnamon bark 500 mg capsule 1,000 mg PO DAILY 03/25/20 10/28/23 History (Cinnamon) coenzyme Q10 100 mg capsule 100 mg
[2023-10-28] MEDS: OLMESARTAN MEDOXOMIL 20 MG TABLET 40 MG PO (12:20)
[2023-10-28] MEDS: ROSUVASTATIN 20 MG TABLET PO (12:20)
[2023-10-28] MEDS: THERAPEUTIC MULTIVITAMINS/MINERALS TAB (*BKC) 1 TABLET PO (12:20)
[2023-10-28] MEDS: ASCORBIC ACID 500 MG TABLET PO (12:20)
[2023-10-28] MEDS: OMEGA 3 POLYUNSAT FATTY ACIDS 1 GM CAP PO (12:20)
[2023-10-28 13:21] LABS: Iron 53 ug/dL (37-170)
[2023-10-28 13:35] LABS: Thyroid Stimulating Hormone Reflex 0.511 uIU/mL (0.465-4.68)
[2023-10-28 13:39] LABS: Percent Iron Saturation 17 % (20-50)
[2023-10-28 13:52] LABS: Hemoglobin A1C 5.2 % (<5.7)
[2023-10-28 14:26] LABS: Folic Acid > 20.0 ng/mL (2.76->20)
[2023-10-28] MEDS: FERROUS SULFATE 325 MG TABLET DR PO (16:53)
--- NOTE | 2023-10-28 17:05 | PM.CNCAR ---
Assessment and Plan Assessment and plan (1) New onset a-fib: Code(s): I48.91 - Unspecified atrial fibrillation Status: Acute Assessment and Plan: Mildly symptomatic. [id number] 4. Rate is normal. Will hold off on anticoagulation given she needs biopsy done for mass around kidney. Once biopsy done then consider anticoagulation. (2) Mixed hyperlipidemia: Code(s): E78.2 - Mixed hyperlipidemia Status: Acute Assessment and Plan: On Rosuvasatin. (3) Essential (primary) hypertension: Code(s): I10 - Essential (primary) hypertension Status: Acute Assessment and Plan: Stable. History of Present Illness History of Present Illness Consult date/time: 10/28/23 17:05 Reason For Visit: New Onset a Fib Narrative: 73 yr old woman who's PCP is Dr. Deunas presents for a follow up visit regarding her cardiovascular status. She has a history of COPD, hypertension, dyslipidemia, obesity, ALIYAH, family history of CAD in her brother. Contacted by ER doctor in regards to new onset atrial fibrillation. Reports she noted more sob and fatigue. It was found she has new onset atrial fib on EKG. She is using her CPAP and working well for her. She is sleeping longer with it, no chest tightness, and has less daytime sleepiness. She can walk 1-2 blocks but it varies depending on the day. Denies orthopnea, PND, edema, palpitations, dizziness. Cardiovascular Procedures Prototype Machinist:: 05/31/20 CTA of heart at [facility]: LM small plaque and 2nd diag small plaque with no stenosis; LCx and distal LAD with <50% stenosis. Calcium score 583. Echo/MUGA:: 05/27/20 Echo: EF 60-65%, diastolic dysfunction (E/e' 19), mod LAE, mod MAC, mild MR/TR, RVSP 44 mmHg. Electrophysiology:: 01/06/21 26 days event monitor: Sinus rhythm, HR range 32-120 bpm; average HR 57 bpm; 32 bpm was on 02/04/21 at 20:34.; 9% PAC, 1% PVC; 3 pauses lasting 3-3.3 seconds at 22:43, 18:55 and 10:06. 05/13/20 EKG: Sinus bradycardia at 50 bpm, PVC, borderline T wave in inferior leads. Stress Tests:: 05/20/19 Stress echo: Inconclusive as she achieved only 78% MPHR for age group; exercised for 5 min, 47 seconds; at that level negative echo portion for ischemia. 05/01/21 Sleep study: Mod ALIYAH and mild central apnea. Review of Systems Review of Systems: All systems reviewed & are unremarkable except as noted in HPI and below Constitutional: Constitutional: Reports as per HPI, Denies chills, Reports fatigue and Denies fever(s) Cardiovascular: Cardiovascular: Reports as per HPI, Denies chest pain, Reports irregular heart rhythm and Denies leg edema Respiratory: Respiratory: Reports as per HPI and Reports dyspnea Gastrointestinal: Gastrointestinal: Reports as per HPI and Denies abdominal pain Genitourinary: Genitourinary: Reports as per HPI and Denies dysuria Musculoskeletal: Musculoskeletal: Reports as per HPI Neurologic: Reports as per HPI, Denies dizziness and Denies syncope [facility] Past Medical History Medical History COPD (chronic obstructive pulmonary disease) Hypercholesteremia Hypertension Hypothyroidism Vaginal delivery x4 Family History Family History Father Hypercholesteremia Family history of alcoholism Hypertension Mother Acute myocardial infarction Hypercholesteremia Family history of Alzheimer's disease Carcinoma of colon Hypertension Cerebrovascular accident, Onset Age: 74 Sibling Family history of cardiovascular disease, Onset Age: 66 Ovarian cancer Acute myocardial infarction brother Hypercholesteremia brother and sister Family history of lung cancer Breast cancer Family history of Alzheimer's disease Family history of malignant neoplasm of breast in first degree relative Family history of coronary artery disease Carcinoma of colon brother Hypertension brother and sister
[2023-10-28] MEDS: LACTATED RINGERS 1,000 ML 250 ML IV CONT (17:07)
--- NOTE | 2023-10-28 18:37 | PDONCCN ---
HPI - Date of Consult Date/Time: 10/28/23 18:37 Requesting Physician: Iqra Moore MD Primary Care Provider: Andrew Wesley MD - Consult Narrative Reason for consult: Retroperitoneal lymphadenopathy Narrative: Virginia Smith is a 73 year old female came into the hospital with complain of intermittent back and upper abdominal pain for last couple of weeks duration when she was on her vacation in [place]. She feels cold and has some chills but no fever and no night sweats. Denies any palpable lymphadenopathy. She has no previous history of malignancy. She may have lost less than 5 lb weight recently. Denies any melena hematochezia. No diarrhea and constipation. Patient had CT scan done showed retroperitoneal lymphadenopathy with left periaortic jillian mass 6.2 x 3.6 cm. Denies any other complaints. Review of Systems - Review of Systems All systems reviewed & are unremarkable except as noted in HPI and bel - Neurologic Denies syncope PMFSH Medical History: Medical History (Last Reviewed 10/28/23 @ 13:08 by Nehemias Flores APRN) COPD (chronic obstructive pulmonary disease) Hypercholesteremia Hypertension Hypothyroidism Vaginal delivery x4 Family History: Family History (Last Reviewed 10/28/23 @ 13:08 by Nehemias Flores APRN) Father Hypercholesteremia Family history of alcoholism Hypertension Mother Acute myocardial infarction Hypercholesteremia Family history of Alzheimer's disease Carcinoma of colon Hypertension Cerebrovascular accident, Onset Age: 74 Sibling Family history of cardiovascular disease, Onset Age: 66 Ovarian cancer Acute myocardial infarction brother Hypercholesteremia brother and sister Family history of lung cancer Breast cancer Family history of Alzheimer's disease Family history of malignant neoplasm of breast in first degree relative Family history of coronary artery disease Carcinoma of colon brother Hypertension brother and sister Family history of elevated blood lipids Grandparent Hypertension grandfathers and grandmothers - Social History Social History: Social History (Last Reviewed 10/28/23 @ 13:08 by Nehemias Flores APRN) Alcohol Use: Alcohol intake: never Alcohol use details: Social - at weddings Substance Use: Substance use: never Others: Spiritual care concerns: No Smoking Status: Smoking status: Never smoker Second hand tobacco smoke exposure: No Social Determinants of Health: Do You Feel Safe in your Home?: Yes Has the Lack of Transportation Kept You From Medical Appointments or From Getting Medications?: No Within the Past 12 Months, Were You Worried Whether Your Food Would Run Out Before You Got Money to Buy More?: Never True What is Your Housing Situation Today?: I Have Housing Are You Worried That in the Next 2 Months, You May Not Have Your Own Housing to Live In?: No Do You Have Trouble Paying Your Heating Or Electricity Bill?: No Do You Have Trouble Paying For Medicines?: No Are You Currently Unemployed and Looking for Work?: No Highest Level of Education Completed: Bachelor's Degree Do You Have Trouble With Childcare or the Care of a Family Member?: No Exam - Vital Signs Vital Signs - 24 hr 10/28/23 03:10 10/28/23 03:10 10/28/23 03:10 Temperature 36.3 C L Pulse Rate 89 86 Respiratory Rate 24 H Blood Pressure 116/55 L Pulse Oximetry 100 100 Oxygen Delivery Room Air Room Air 10/28/23 03:10 10/28/23 03:45 10/28/23 04:00 Temperature Pulse Rate 89 87 91 Respiratory Rate 24 H 24 H 23 H Blood Pressure 116/55 L Pulse Oximetry 96 97 98 Oxygen Delivery 10/28/23 04:15 10/28/23 04:30 10/28/23 04:45 Temperature Pulse Rate 92 83 83 Respiratory Rate 22 H 18 14 Blood Pressure Pulse Oximetry 97 Oxygen Delivery 10/28/23 05:00 10/28/23 05:15 10/28/23 0
[2023-10-28 19:14] LABS: Immature Reticulocyte Fraction 18.7 % (3.0-15.9); Reticulocyte Hemoglobin Conten 29.8 pg (28.2-36.6); Reticulocyte Percent 4.87 % (0.7-4.3); Reticulocytes Absolute 0.15 10^6/uL (0.02-0.10)
[2023-10-28 19:41] LABS: Lactate Dehydrogenase > 1000 U/L (120-246)
[2023-10-28] MEDS: LACTATED RINGERS 1,000 ML 100 ML IV CONT (23:55)
[2023-10-29] VITALS (10 sets, daily range): BP systolic 100–143; BP diastolic 55–82; PULSE 60–86; RESP 16–17; TEMP 36.4–37; O2SAT 90–100
--- NOTE | 2023-10-29 | ECHO_ITS ---
Patient Info Name: Virginia Smith Age: 73 years : 1950 Gender: Female Ht: 66 in Wt: 258 lbs BSA: 2.39 m2 HR: 79 bpm BP: 100 / 67 mmHg Heart Rhythm: Atrial Fibrillation Technical Quality: Fair Exam Date: 10/29/2023 3:48 PM Exam Location: Echo Lab Patient Status: Inpatient Admit Date: 10/29/2023 Staff Ordering Physician: Amadou Wylie DO Sampler Ovens: Vijay Edmond RDCS Attending Provider: Iqra Moore MD Referring Physician: Dejan ENRIQUEZ; Exam Type: CA echo dop color flow w con Study Info Indications I48.1 - Persistent atrial fibrillation Complete two-dimensional, color flow and Doppler transthoracic echocardiogram is performed with contrast to opacify the left ventricle and to improve the deliniation of the left ventricle endocardial borders. Contrast/Agitated Saline Contrast/Ag. Saline: Definity Amount: 3.00 ml IV Access Condition: patent with no signs of infiltration Summary 1. Definity contrast administered improved wall motion interpretation. 2. Left ventricular chamber dimension is normal. 3. Left ventricular systolic function is normal, estimated at 60-65%. 4. The left ventricular diastolic function is abnormal. 5. E/e' 13 is mildly elevated. 6. Atrial fibrillation. 7. Left atrial chamber dimension is moderately enlarged. 8. There is mild aortic valve sclerosis. 9. The mitral valve has mildly calcified annulus. 10. There is mild mitral valve regurgitation. 11. There is moderate tricuspid valve regurgitation. 12. Moderate pulmonary hypertension, estimated pulmonary arterial systolic pressure is 52 mmHg. Left Ventricle E/e' 13 is mildly elevated. Atrial fibrillation. Definity contrast administered improved wall motion interpretation. Left ventricular chamber dimension is normal. Left ventricular systolic function is normal, estimated at 60-65%. The left ventricular diastolic function is abnormal. Right Ventricle Right ventricular chamber dimension is normal. Right ventricular systolic function is normal. Left Atria Left atrial chamber dimension is moderately enlarged. Right Atria Right atrial chamber dimension is normal. Aortic Valve The aortic valve is trileaflet. There is mild aortic valve sclerosis. There is no aortic valve stenosis. There is no aortic valve regurgitation. Pulmonic Valve There is no pulmonic regurgitation. Mitral Valve The mitral valve has mildly calcified annulus. There is no mitral valve stenosis. There is mild mitral valve regurgitation. Tricuspid Valve There is moderate tricuspid valve regurgitation. Moderate pulmonary hypertension, estimated pulmonary arterial systolic pressure is 52 mmHg. Pericardium/Pleural There is no pericardial effusion. Inferior Vena Cava Normal inferior vena cava with >50% collapse upon inspiration consistent with normal right atrial pressure, 5 mmHg. Aorta The aortic root size at the sinus of Valsalva is normal. Left Ventricular Outflow Tract Name Value Normal LVOT 2D LVOT Diameter 1.92 cm LVOT Doppler LVOT Peak Gradient 4 mmHg LVOT Mean Gradient 2 mmHg LVOT VTI 19.74 cm
[2023-10-29] MEDS: WATER FOR IRRIGATION, STERILE 1,000 ML BOTTLE 1000 ML (00:13)
[2023-10-29] MEDS: LEVOTHYROXINE SODIUM 112 MCG TABLET PO (06:18)
[2023-10-29 06:41] LABS: Hematocrit 27.8 % (37.0-47.0); Hemoglobin 8.5 g/dL (12.0-15.0); Mean Corpuscular HGB Conc 30.6 g/dl (32-36); Mean Corpuscular Hemoglobin 29.1 pg (26-34); Mean Corpuscular Volume 95.2 fl (80-100); Mean Platelet Volume 10.7 fl (7.4-10.4); Platelet Count Result 177 k/mm3 (150-375); Red Blood Count 2.92 M/mm3 (4.2-5.4); Red Cell Distribution Width 17.4 % (11.5-14.5); White Blood Count 6.8 K/mm3 (4.5-10.0)
[2023-10-29 06:52] LABS: Alanine Aminotransferase 18 U/L (6-35); Albumin Level 2.9 g/dL (3.5-5.1); Alkaline Phosphatase 63 U/L (38-126); Anion Gap 4 mmol/L (4-12); Aspartate Amino Transferase 81 U/L (14-36); Bilirubin,Total 1.3 mg/dL (0.2-1.3); Blood Urea Nitrogen 13 mg/dL (7-17); Calcium 8.3 mg/dL (8.4-10.2); Carbon Dioxide 28 mmol/L (22-30); Chloride 100 mmol/L (98-107); Estimated CRCL calculation 69 ml/min; Estimated Glomerular Filt Rate > 60; Glucose 103 mg/dL (65-110); Potassium 4.5 mmol/L (3.4-5.0); Sodium 132 mmol/L (137-145)
[2023-10-29 07:17] LABS: INR 1.3; Prothrombin Time 16.5 Seconds (11.1-14.7)
[2023-10-29 07:18] LABS: Partial Thromboplastin Time 31.9 Seconds (22.3-36.8)
[2023-10-29] MEDS: ROSUVASTATIN 20 MG TABLET PO (08:39)
[2023-10-29] MEDS: OMEGA 3 POLYUNSAT FATTY ACIDS 1 GM CAP PO (08:39)
[2023-10-29] MEDS: FERROUS SULFATE 325 MG TABLET DR PO ×2 (08:39→17:02)
[2023-10-29] MEDS: ASCORBIC ACID 500 MG TABLET PO (08:39)
[2023-10-29] MEDS: THERAPEUTIC MULTIVITAMINS/MINERALS TAB (*BKC) 1 TABLET PO (08:39)
[2023-10-29] MEDS: UMECLIDINIUM/VILANTEROL 62.5-25 MCG ELLIPTA 1 PUFF INHALATION (08:45)
[2023-10-29 08:51] LABS: Band Neutrophils Percent 3 % (0-6); Eosinophils Absolute Manual 0.06 K/mm3 (0.02-0.50); Eosinophils Percent Manual 1 % (0-4); Lymphocytes Absolute Manual 1.02 K/mm3 (1.1-4.5); Metamyelocytes Percent 2 %; Monocytes Absolute Manual 0.61 K/mm3 (0.1-0.90); Monocytes Percent Manual 9 % (3-9); Neutrophils Absolute Manual 4.96 K/mm3 (1.7-7.2); Neutrophils Percent Manual 70 % (46-73); Platelet Estimate Adequate (Adequate); Schistocytes None Seen; Total Cells Counted 100
[2023-10-29 08:52] LABS: Atypical Lymphocytes Present
[2023-10-29] MEDS: LACTATED RINGERS 1,000 ML 100 ML IV CONT (10:30)
--- NOTE | 2023-10-29 12:11 | PM.IMPN ---
Progress Note: A&P Assessment and Plan (1) New onset a-fib: Code(s): I48.91 - Unspecified atrial fibrillation Status: Acute Assessment and Plan: 10/29/23: AFib, rate controlled in the 70s to 80s Eliquis started Echo performed today, results pending (2) Lymphadenopathy, retroperitoneal: Code(s): R59.0 - Localized enlarged lymph nodes Status: Acute Assessment and Plan: 10/29/23: new finding of retroperitoneal lymphadenopathy and mass near left kidney Status post biopsy (3) Renal mass of unknown nature: Code(s): N28.89 - Other specified disorders of kidney and ureter Status: Acute Assessment and Plan: 10/29/23: new finding of retroperitoneal lymphadenopathy and mass near left kidney Status post biopsy (4) Anemia: Code(s): D64.9 - Anemia, unspecified Status: Acute Assessment and Plan: /10/29/23: Continue oral iron (5) Essential (primary) hypertension: Code(s): I10 - Essential (primary) hypertension Status: Acute Assessment and Plan: 10/29/23: Blood pressure ranging 103/70 to 119/52 Continue to hold losartan (6) ALIYAH (obstructive sleep apnea): Code(s): G47.33 - Obstructive sleep apnea (adult) (pediatric) Status: Acute Assessment and Plan: 10/29/23: CPAP at night for sleep Subjective Date/time seen: 10/29/23 12:11 Interval history: Interval history: This is a 73-year-old female presented to the hospital on 10/28/2023 with new onset AFib, shortness of breath, fatigue. Workup in the hospital included a chest x-ray which was negative. Chest CTA showed partially visualized retroperitoneal lymph edema past the and perinephric masses suspicious for malignancy such as lymphoma, no PE. Abdomen pelvis CT showed retroperitoneal lymphadenopathy and perinephric masses consistent with lymphoma recommending CT-guided biopsy. Patient had a CT-guided biopsy performed today. Initial labs showed a normal white blood cell count of 7.4, hemoglobin 9.7, INR 1.3, sodium 134, EGFR 54, hemoglobin A1c 5.2, ferritin 861, iron 53, total bili 1.4, AST 103, troponins negative, lactate dehydrogenase greater than a 1000 lipase 105, folate greater than 20, vitamin B12 641, TSH 0.511. Respiratory panel was negative for influenza a and B, RSV, COVID. EKG shown atrial fibrillation with a rate of 85. Cardiology was consulted and recommends holding off on anticoagulation until after renal biopsy. 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 Additional labs are pending including LDH, retic count, direct Jam test, and soluble transferrin receptor. Oncology will follow patient on an outpatient basis upon discharge. 10/29/23: Patient denies fever, chills, nausea, vomiting, diarrhea, abdominal pain, chest pain, shortness a breath. Family at the bedside. Labs and imaging reviewed. Review of Systems Review of Systems: All systems reviewed & are unremarkable except as noted in HPI and below Constitutional: Constitutional: Reports as per HPI and Reports no additional constitutional complaints Eyes: Eyes: Reports as per HPI and Reports no additional eye complaints ENT: Reports system reviewed and no additional complaints, except as documented and Reports as per HPI Cardiovascular: Cardiovascular: Reports as per HPI and Reports no additional cardiovascular complaints Respiratory: Respiratory: Reports as per HPI and Reports no additional respiratory complaints Gastrointestinal: Gastrointestinal: Reports as per HPI and Reports no additional gastrointestinal complaints Genitourinary: Genitourinary: Reports no additional female genitourinary complaints and Reports as per HPI Musculoskeletal: Musculoskeletal: Reports no additional musculoskeletal complaints and Reports as per HPI Integumentary/Breasts:
--- NOTE | 2023-10-29 16:19 | PM.PNCARD ---
Progress Note: A&P Assessment and Plan (1) New onset a-fib: Code(s): I48.91 - Unspecified atrial fibrillation Status: Acute Assessment and Plan: Mildly symptomatic. [id number] 4. Rate is normal. She is s/p biopsy of perinephric mass. Obtain echo. Start Eliquis 5 mg BID. (2) Mixed hyperlipidemia: Code(s): E78.2 - Mixed hyperlipidemia Status: Acute Assessment and Plan: On Rosuvasatin. (3) Essential (primary) hypertension: Code(s): I10 - Essential (primary) hypertension Status: Acute Assessment and Plan: Stable. Subjective Date/time seen: 10/29/23 16:19 Interval history: Denies chest pain or sob. Exam Const: General: cooperative, healthy appearing and comfortable Orientation/consciousness: oriented to person, oriented to place and oriented to time Resp: Auscultation: clear to auscultation bilaterally, no crackles, no rales, no rhonchi and no wheezes Cardio: Rate: regular rate Rhythm: abnormal rhythm Heart sounds: no murmurs Peripheral pulses: dorsalis pedis present Neuro: General: oriented to person, oriented to place and oriented to time Extrem: Right lower extremity: no edema Left lower extremity: no edema Objective Data Vital Signs Vital Signs: Vital Signs - 24 hr 10/28/23 19:43 10/28/23 20:00 10/29/23 00:00 Temperature 98.9 F Pulse Rate 89 77 81 Respiratory Rate 18 Blood Pressure 119/52 L Pulse Oximetry 97 Oxygen Delivery 10/29/23 04:00 10/29/23 04:43 10/29/23 08:00 Temperature 97.6 F Pulse Rate 74 79 Respiratory Rate 16 Blood Pressure 100/67 Pulse Oximetry 96 Oxygen Delivery Room Air 10/29/23 08:45 10/29/23 13:51 10/29/23 08:00 Temperature 97.5 F L Pulse Rate 60 76 Respiratory Rate 16 Blood Pressure 106/55 L Pulse Oximetry 96 100 Oxygen Delivery Room Air 10/29/23 12:00 Temperature Pulse Rate 83 Respiratory Rate Blood Pressure Pulse Oximetry Oxygen Delivery Intake/Output Intake/Output: Intake & Output 10/26/23 10/27/23 10/28/23 10/29/23 23:59 23:59 23:59 23:59 Intake Total 790 1790 Output Total 900 Balance 790 890 Meds/Results Medications: Active Medications Generic Name Dose Route Start Last Admin Trade Name Freq PRN Reason Stop Dose Admin Albuterol 1 puff 10/28/23 11:28 Albuterol Sulfate (*Sp) Aerosol 1 Puff INHALATION Q4H PRN shortness of breath or wheezing Ascorbic Acid 500 mg 10/28/23 09:00 10/29/23 08:39 Ascorbic Acid 500 Mg Tablet PO 500 mg DAILY ARMAAN Administration Ferrous Sulfate 325 mg 10/28/23 17:00 10/29/23 08:39 Ferrous Sulfate [address] PO 325 mg BID ARMAAN Administration Fish Oil 1 gm 10/28/23 09:00 10/29/23 08:39 [place] 3 Polyunsat Fatty Acids 1 Gm Cap PO 1 gm DAILY ARMAAN Administration Lactated Ringer's 1,000 mls @ 100 mls/hr 10/29/23 00:00 10/29/23 10:30 Lr - Lactated Ringers Iv IV CONT 100 mls/hr .Q10H ARMAAN Administration Levothyroxine Sodium 112 mcg 10/29/23 06:30 10/29/23 06:18 Levothyroxine Sodium 112 Mcg Tablet PO 112 mcg DAILY@0630 ARMAAN Administration Multivitamins/Calcium 1 tablet 10/28/23 09:00 10/29/23 08:39 Therapeutic Multivitamins/Minerals Tab (*Bkc) PO 1 tablet DAILY ARMAAN Administration Olmesartan 40 mg 10/28/23 09:00 10/28/23 12:20 Olmesartan Medoxomil 20 Mg Tablet PO 40 mg DAILY ARMAAN Administration Perflutren Lipid Microsphere 0 ml 10/29/23 13:09 Perflutren Lipid Microspheres 1.5 Ml Vial Diluted To 10 Ml Total Volume IV PUSH 11/01/23 13:09 ONCE PRN adequate visualization Protocol Rosuvastatin Calcium 20 mg 10/28/23 09:00 10/29/23 08:39 Rosuvastatin 20 Mg Tablet PO 20 mg QAM ARMAAN Administration Umeclidinium/Vilanterol 1 puff 10/28/23 08:00 10/29/23 08:45 Umeclidinium/Vilanterol 62.5-25 Mcg Ellipta INHALATION 1 puff DAILYRT ARMAAN Administration Radiology Results: ITS Imp
[2023-10-29] MEDS: PERFLUTREN LIPID MICROSPHERES 1.5 ML VIAL DILUTED TO 10 ML TOTAL VOLUME IV PUSH (16:51)
--- NOTE | 2023-10-29 16:51 | IVDEFINITY ---
Prior to administration of IV Definity the patient was educated on the risks and benefits of the imaging enhancing agent including potential adverse side effects. The patient verbalized understanding. Allergies were verified. No exclusion criteria were identified and at least one of the following inclusion criteria were met: 1) physician request, 2) patient technically difficult to image (per the [place] [employer] guidelines of two or more segments not discernable within the apical view), or 3) questionable left ventricular function. ?
[2023-10-29] MEDS: MIRTAZAPINE 7.5 MG TABLET PO (20:43)
[2023-10-29] MEDS: APIXABAN 5 MG TABLET PO (20:43)
[2023-10-29] MEDS: LORazepam (*CRX) 0.5 MG TABLET PO (20:44)
[2023-10-30] VITALS: PULSE 83
[2023-10-30 04:00] VITALS: PULSE 79
[2023-10-30 05:38] LABS: Hematocrit 27.9 % (37.0-47.0); Hemoglobin 8.8 g/dL (12.0-15.0); Mean Corpuscular HGB Conc 31.5 g/dl (32-36); Mean Corpuscular Hemoglobin 29.4 pg (26-34); Mean Corpuscular Volume 93.3 fl (80-100); Mean Platelet Volume 10.4 fl (7.4-10.4); Platelet Count Result 179 k/mm3 (150-375); Red Blood Count 2.99 M/mm3 (4.2-5.4); Red Cell Distribution Width 17.5 % (11.5-14.5); White Blood Count 6.8 K/mm3 (4.5-10.0)
[2023-10-30] MEDS: LEVOTHYROXINE SODIUM 112 MCG TABLET PO (05:38)
[2023-10-30 05:55] LABS: Alanine Aminotransferase 18 U/L (6-35); Alkaline Phosphatase 67 U/L (38-126); Anion Gap 8 mmol/L (4-12); Aspartate Amino Transferase 90 U/L (14-36); Bilirubin,Total 1.4 mg/dL (0.2-1.3); Blood Urea Nitrogen 13 mg/dL (7-17); Calcium 8.7 mg/dL (8.4-10.2); Carbon Dioxide 24 mmol/L (22-30); Chloride 98 mmol/L (98-107); Estimated CRCL calculation 78 ml/min; Estimated Glomerular Filt Rate > 60; Glucose 103 mg/dL (65-110); Magnesium 1.9 mg/dL (1.6-2.3); Potassium 4.3 mmol/L (3.4-5.0); Sodium 130 mmol/L (137-145)
[2023-10-30 06:00] VITALS: BP 133/73; PULSE 70; RESP 17; TEMP 36.3; O2SAT 94
[2023-10-30 07:31] LABS: Band Neutrophils Percent 4 % (0-6); Eosinophils Absolute Manual 0.06 K/mm3 (0.02-0.50); Eosinophils Percent Manual 1 % (0-4); Lymphocytes Absolute Manual 0.88 K/mm3 (1.1-4.5); Metamyelocytes Percent 1 %; Monocytes Absolute Manual 0.68 K/mm3 (0.1-0.90); Monocytes Percent Manual 10 % (3-9); Neutrophils Percent Manual 71 % (46-73); Platelet Estimate Adequate (Adequate); Total Cells Counted 100
[2023-10-30 07:32] LABS: Schistocytes None Seen
--- NOTE | 2023-10-30 07:51 | PM.PNCARD ---
Progress Note: A&P Assessment and Plan (1) New onset a-fib: Code(s): I48.91 - Unspecified atrial fibrillation Status: Acute Assessment and Plan: Minimally symptomatic. [id number] 4. Rate is normal. She is s/p biopsy of perinephric mass. 10/29/23 Echo: EF 60-65%, diastolic dysfunction (E/e' 13), mod LAE, mild MAC, mild MR, mod TR, RVSP 52 mmHg. Started 10/29/23 Eliquis 5 mg BID. Will sign off. Please call with any questions. Have her f/u with me in 1-2 weeks upon discharge. (2) Mixed hyperlipidemia: Code(s): E78.2 - Mixed hyperlipidemia Status: Acute Assessment and Plan: On Rosuvasatin. (3) Essential (primary) hypertension: Code(s): I10 - Essential (primary) hypertension Status: Acute Assessment and Plan: Stable. Subjective Date/time seen: 10/30/23 07:51 Interval history: Denies chest pain or sob. Exam Const: General: cooperative, healthy appearing and comfortable Orientation/consciousness: oriented to person, oriented to place and oriented to time Resp: Auscultation: clear to auscultation bilaterally, no crackles, no rales, no rhonchi and no wheezes Cardio: Rate: regular rate Rhythm: abnormal rhythm Heart sounds: no murmurs Peripheral pulses: dorsalis pedis present Neuro: General: oriented to person, oriented to place and oriented to time Extrem: Right lower extremity: no edema Left lower extremity: no edema Objective Data Vital Signs Vital Signs: Vital Signs - 24 hr 10/29/23 08:00 10/29/23 08:45 10/29/23 13:51 Temperature 97.5 F L Pulse Rate 60 Respiratory Rate 16 Blood Pressure 106/55 L Pulse Oximetry 96 100 Oxygen Delivery Room Air Room Air 10/29/23 08:00 10/29/23 12:00 10/29/23 16:00 Temperature Pulse Rate 76 83 79 Respiratory Rate Blood Pressure Pulse Oximetry Oxygen Delivery 10/29/23 20:00 10/29/23 22:00 10/29/23 20:00 Temperature 98.6 F Pulse Rate 79 73 86 Respiratory Rate 16 17 Blood Pressure 143/82 H Pulse Oximetry 100 90 Oxygen Delivery Room Air 10/30/23 00:00 10/30/23 04:00 10/30/23 06:00 Temperature 97.4 F L Pulse Rate 83 79 70 Respiratory Rate 17 Blood Pressure 133/73 Pulse Oximetry 94 Oxygen Delivery Intake/Output Intake/Output: Intake & Output 10/27/23 10/28/23 10/29/23 10/30/23 23:59 23:59 23:59 23:59 Intake Total 790 2580 50 Output Total 900 200 Balance 790 1680 -150 Meds/Results Medications: Active Medications Generic Name Dose Route Start Last Admin Trade Name Freq PRN Reason Stop Dose Admin Albuterol 1 puff 10/28/23 11:28 Albuterol Sulfate (*Sp) Aerosol 1 Puff INHALATION Q4H PRN shortness of breath or wheezing Apixaban 5 mg 10/29/23 21:00 10/29/23 20:43 Apixaban 5 Mg Tablet PO 5 mg Q12HR ARMAAN Administration Ascorbic Acid 500 mg 10/28/23 09:00 10/29/23 08:39 Ascorbic Acid 500 Mg Tablet PO 500 mg DAILY ARMAAN Administration Ferrous Sulfate 325 mg 10/28/23 17:00 10/29/23 17:02 Ferrous Sulfate [address] PO 325 mg BID ARMAAN Administration Fish Oil 1 gm 10/28/23 09:00 10/29/23 08:39 [place] 3 Polyunsat Fatty Acids 1 Gm Cap PO 1 gm DAILY ARMAAN Administration Levothyroxine Sodium 112 mcg 10/29/23 06:30 10/30/23 05:38 Levothyroxine Sodium 112 Mcg Tablet PO 112 mcg DAILY@0630 ARMAAN Administration Lorazepam 0.5 mg 10/29/23 17:41 10/29/23 20:44 Lorazepam (*Crx) 0.5 Mg Tablet PO 0.5 mg TID PRN Administration Anxiety Mirtazapine 7.5 mg 10/29/23 21:00 10/29/23 20:43 Mirtazapine 7.5 Mg Tablet PO 7.5 mg HS ARMAAN Administration Multivitamins/Calcium 1 tablet 10/28/23 09:00 10/29/23 08:39 Therapeutic Multivitamins/Minerals Tab (*Bkc) PO 1 tablet DAILY ARMAAN Administration Olmesartan 40 mg 10/28/23 09:00 10/28/23 12:20 Olmesartan Medoxomil 20 Mg Tablet PO 40 mg DAILY ARMAAN Administration Ondansetron HCl 4 mg 10/29/23 16:41
[2023-10-30 08:16] VITALS: PULSE 73; RESP 18; O2SAT 97
[2023-10-30] MEDS: UMECLIDINIUM/VILANTEROL 62.5-25 MCG ELLIPTA 1 PUFF INHALATION (08:16)
[2023-10-30] MEDS: OMEGA 3 POLYUNSAT FATTY ACIDS 1 GM CAP PO (09:01)
[2023-10-30] MEDS: ASCORBIC ACID 500 MG TABLET PO (09:01)
[2023-10-30] MEDS: FERROUS SULFATE 325 MG TABLET DR PO (09:01)
[2023-10-30] MEDS: APIXABAN 5 MG TABLET PO (09:01)
[2023-10-30] MEDS: ROSUVASTATIN 20 MG TABLET PO (09:02)
[2023-10-30] MEDS: THERAPEUTIC MULTIVITAMINS/MINERALS TAB (*BKC) 1 TABLET PO (09:02)
--- NOTE | 2023-10-30 11:01 | PM.DS ---
DS: Admitting Diagnosis Discharge Date 10/30/23 Admitting Diagnosis New onset AFib Retroperitoneal lymphadenopathy Renal mass of unknown nature Anemia Primary hypertension COPD ALIYAH Hyperlipidemia Pre diabetes DS: Summary Hospital Course Reason for hospitalization: New onset AFib Retroperitoneal lymphadenopathy Renal mass of unknown nature Anemia Primary hypertension COPD ALIYAH Hyperlipidemia Pre diabetes Hospital Course: This is a 73-year-old female presented to the hospital on 10/28/2023 with new onset AFib, shortness of breath, fatigue. Workup in the hospital included a chest x-ray which was negative. Chest CTA showed partially visualized retroperitoneal lymph edema past the and perinephric masses suspicious for malignancy such as lymphoma, no PE. Abdomen pelvis CT showed retroperitoneal lymphadenopathy and perinephric masses consistent with lymphoma recommending CT-guided biopsy. Patient had a CT-guided biopsy performed today. Initial labs showed a normal white blood cell count of 7.4, hemoglobin 9.7, INR 1.3, sodium 134, EGFR 54, hemoglobin A1c 5.2, ferritin 861, iron 53, total bili 1.4, AST 103, troponins negative, lactate dehydrogenase greater than a 1000 lipase 105, folate greater than 20, vitamin B12 641, TSH 0.511. Respiratory panel was negative for influenza a and B, RSV, COVID. EKG shown atrial fibrillation with a rate of 85. Cardiology was consulted and recommends holding off on anticoagulation until after renal biopsy. 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 Additional labs are pending including LDH, retic count, direct Jam test, and soluble transferrin receptor. Oncology will follow patient on an outpatient basis upon discharge. Echo showing normal LV systolic function with an estimated EF of 60 is 65%, diastolic dysfunction, moderate tricuspid valve regurgitation, moderate pulmonary hypertension. Patient is stable for discharge at this time. Patient will also need to follow up with Cardiology in 2 weeks. She is stable for discharge today on Eliquis. Final diagnosis new onset AFib, retroperitoneal lymphadenopathy, renal mass of unknown nature, anemia Status at Discharge Cognitive/behavioral status at discharge: Alert and oriented x3 Functional status at discharge: independent ambulation Overall status at discharge: patient is progressing back to baseline Time Spent with Patient Time attestation: Total time spent providing and/or coordinating discharge services: Time spent: Less than 30 minutes Exam Narrative: General: In no acute distress, well nourished Cardiac: Normal S1 and S2. Irregular rhythm, controlled rate. No murmur, gallops or friction rubs, peripheral pulses intact. Respiratory: Lungs clear to auscultation, no adventitious lung sounds, currently on room air Gastrointestinal: soft, non-distended, non-tender, normoactive bowel sounds. : voiding without difficulty. Neuro: Alert and oriented x4 DS: Data Data Completed and Pending Completed studies during hospitalization: Chest x-ray Chest CTA Abdomen/pelvis CT Abdomen biopsy CT Pending studies at discharge: Lymph node biopsy pending Labs on day of discharge: Labs from last 24 hours 10/30/23 05:23 WBC 6.8 RBC 2.99 L Hgb 8.8 L Hct 27.9 L MCV 93.3 MCH 29.4 MCHC 31.5 L RDW 17.5 H Plt Count 179 MPV 10.4 Immature Gran % (Auto) Not Reportable Neut % (Auto) Not Reportable Lymph % (Auto) Not Reportable [place] % (Auto) Not Reportable Eos % (Auto) Not Reportable Baso % (Auto) Not Reportable Lymph # (Auto) Not Reportable [place] # (Auto) Not Reportable Eos # (Auto) Not Reportable Baso # (Auto) Not Reportable Abs Immat Gran (auto) Not Reportable Absolute Neuts (auto) Not Reportable Absolute Nucleated RBC Not Reportable Total Counted 100 Neutrophils % (Manual) 71 Ban
== END 2023-10-30 11:20 | disposition home or self-care (01) | DRG 309 ==
LOC: ANHED 06:52 → ANH2MED 10:08
PROVIDERS: Emergency Medicine; Internal Medicine Hematology & Oncology; Nurse Practitioner; Admitting Provider Internal Medicine; Emergency Provider Emergency Medicine; PCP Family Medicine; Visit Provider Nurse Practitioner Acute Care
DX: I48.91 Unspecified atrial fibrillation (principal); Z68.41 Body mass index [BMI] 40.0-44.9, adult; R59.0 Localized enlarged lymph nodes; N28.89 Other specified disorders of kidney and ureter; D59.8 Other acquired hemolytic anemias; R73.03 Prediabetes; J44.9 Chronic obstructive pulmonary disease, unspecified; G47.33 Obstructive sleep apnea (adult) (pediatric); I10 Essential (primary) hypertension; E03.9 Hypothyroidism, unspecified; E78.2 Mixed hyperlipidemia; E66.9 Obesity, unspecified; Z79.82 Long term (current) use of aspirin
CPT/HCPCS: 36415; 49180; 71045; 71275; 74177; 77012; 80053; 82607; 82728; 82746; 83036; 83540; 83550; 83615; 83690; 83735; 84238; 84443; 84484; 85025; 85046; 85610; 85730; 86880; 87637; 88184; 88305; 93005; 94640; 96360; 96361; 99285; A9270; C8929; G0378; J7120; Q9957; Q9967